=== PATIENT | female | born 1960 | race Caucasian/White ===

== ENCOUNTER 2022-08-31 19:51 | Emergency (ER) | payer BC, SELFPAY ==
[2022-08-31 20:08] VITALS: BP 160/68; PULSE 83; RESP 12; TEMP 37.1; O2SAT 98
--- NOTE | 2022-08-31 20:40 | ED.URI ---
HPI - URI/Sore Throat General Chief Complaint: Upper Respiratory Infection Stated Complaint: Sinus Time Seen by Provider: 08/31/22 20:35 Source: patient, family, RN notes reviewed and old records reviewed Mode of arrival: ambulatory Limitations: no limitations History of Present Illness HPI Narrative: 61 year old female who presents to [facility] care accompanied by spouse with complaints of sinus pressure and congestion since Friday with no fever or sore throat. Patient reports that now symptoms have gone to her chest and she is having productive cough of greenish mucous. Patient reports that she has some shortness of breath when she lays down,slept in recliner last night. MD elicited complaint: cough, rhinorrhea, nasal congestion, sinus pain and other (orthopnea) Onset (ago): day(s) (5 days) Pain scale (0-10): 4 Description of mucous: green Able to tolerate fluids by mouth: Yes Exacerbating factors: other (laying down) Associated symptoms: rhinorrhea, nasal congestion, cough and other (orthopnea) Treatments prior to arrival: other (Mucinex) Related Data Home Medications Medication Instructions Recorded Confirmed lisinopril 10 mg tablet 10 mg PO DAILY 04/03/19 08/31/22 amlodipine 10 mg tablet 10 mg PO DAILY 08/31/22 08/31/22 Allergies Allergy/AdvReac Type Severity Reaction Status Date / Time amoxicillin [From Amoxil] Allergy Rash Verified 08/31/22 20:16 Review of Systems Review of Systems: CONSTITUTIONAL: Reports malaise,no chills, sweats, or fever. EYES: Denies visual changes, redness, or discharge. ENT: Reports rhinorrhea, congestion, sinus pain, no otalgia and no sore throat. CARDIOVASCULAR: Denies chest pain, palpitations, or edema. RESPIRATORY: Reports productive cough.? Denies acute dyspnea, reports orthopnea. GASTROINTESTINAL: Denies abdominal pain, nausea, vomiting, diarrhea SKIN: Denies rash or itching. MUSCULOSKELETAL: Denies myalgia. NEUROLOGIC: Denies headache. All systems reviewed & are unremarkable except as noted in HPI and below PMFSH Past Medical History Medical History Glaucoma HTN (hypertension) Surgical History Surgical History No significant past surgical history Social History Social History Smoking status: Never smoker Gender identity (if verbalized by the patient): Female Comments At time of signature, agree with nursing past medical, surgical, social and family history. There is no relevant family history pertinent to the presenting complaint Exam Narrative: GENERAL: Well-appearing, well-nourished, and in no acute distress. HEAD: Normocephalic EYES: PERRLA, conjunctivae clear ENT: Nares swollen, turbinates edematous and erythematous, clear discharge. Mucous membranes moist. TM pearly alfaro with dull light reflex bilaterally; no tragal tenderness. Oropharynx erythematous without lesions. Tonsils not enlarged and without exudate, no drooling, no hoarseness, no trismus, uvula midline. NECK: Supple. No lymphadenopathy CHEST: Scattered wheezing, breath sounds equal. wheezing, no rhonchi, rales, or stridor. No respiratory distress, speaks in full sentences. orthopnea SAO2 98% on room air HEART: Regular rate and rhythm. No murmur heard. SKIN: Warm, dry, no rash. NEURO: Alert and oriented x3. PSYCH: Normal mood and affect Course Course Emergency Course: Patient is aware of diagnosis, understands and agrees to treatment plan.? Anticipatory guidance given.? Patient agrees to follow-up as directed and is aware of reasons to seek care at the emergency department. Portions of this record may have been created with voice recognition software Level of Care: Express Care Visit Vital Signs Vital signs: Vital Signs Temperature 37.1 C 08/31/22 20:08 Pulse Rate 83 08/31/22 20:0
== END 2022-08-31 20:58 | disposition home or self-care (01) ==
PROVIDERS: Emergency Provider Registered Nurse; PCP Nurse Practitioner Family
DX: J40 Bronchitis, not specified as acute or chronic (principal); I10 Essential (primary) hypertension; H40.9 Unspecified glaucoma
CPT/HCPCS: 99213; G0463